=== PATIENT | female | born 1955 | race Two or more races ===

== ENCOUNTER 2022-02-20 05:52 | Day surgery (SDC) | payer OTHER ==
[~2022-02-20] VITALS: Ht 157.5 cm; Wt 94.3 kg
[~2022-02-20 05:52] MED LIST: ACID REDUCER20 M1 PO; FENOFIBRATE160 MG PO; GABAPENTIN300 MG; GLIMEPIRIDE2 MG; LOSARTAN-HCTZ1 EAC2 PO; METFORMIN HCL500 M3 PO; PROAIR HFA8.5 GM IH; SINGULAIR4 M1 PO; SYMBICORT 16010.2 GM IH; SYNTHROID75 MCG PO; ZOCOR20 MG PO
== END 2022-02-20 12:50 | disposition home or self-care (01) ==
LOC: CIR.AMB 05:52
PROVIDERS: ATTEND Colon & Rectal Surgery
DX: R15.9 Full incontinence of feces (principal); I10 Essential (primary) hypertension; E11.9 Type 2 diabetes mellitus without complications; Z79.84 Long term (current) use of oral hypoglycemic drugs; Z88.6 Allergy status to analgesic agent
CPT/HCPCS: 64590; 95972; L8679